=== PATIENT | female | born 2000 | race Caucasian/White ===

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

== ENCOUNTER 2020-09-12 13:09 | Emergency (ER) | payer MEDICAID, OTHER ==
[~2020-09-12] VITALS: Ht 170.2 cm; Wt 108.2 kg
[~2020-09-12 13:09] MED LIST: IBUP-1022 PO; OMEG100011 PO; VITA500046 PO
--- NOTE | 2020-09-12 14:25 | REP ---
INDICATION: trauma COMPARISON: None. TECHNIQUE: AP, lateral, bilateral oblique views. FINDINGS: No acute fracture or dislocation. Skeletal structures and joint spaces are intact and normal. Ankle mortise appears stable. No subcutaneous emphysema or radiodense foreign body. IMPRESSION: Normal right ankle radiograph series. <Electronically signed by Mazin Serra > 09/12/20 [id number]
[2020-09-12] MEDS ORDERED: DEPO150I12 IM (14:32)
--- NOTE | 2020-09-12 14:45 | REP ---
INDICATION: truama COMPARISON: None. TECHNIQUE: AP, lateral, bilateral oblique views right foot. FINDINGS: The osseous structures and joint spaces are intact and normal. There is no evidence for acute fracture or dislocation. Surrounding soft tissues are unremarkable. No subcutaneous emphysema or radiodense foreign body. IMPRESSION: . No acute fracture or dislocation. <Electronically signed by Mazin Serra > 09/12/20 [id number]
[2020-09-12 15:02] VITALS: BP 120/68
== END 2020-09-12 15:04 | disposition home or self-care (01) ==
LOC: M ED 13:09
DX: S93.401A Sprain of unspecified ligament of right ankle, initial encounter (principal); X50.1XXA Overexertion from prolonged static or awkward postures, initial encounter; Y92.098 Other place in other non-institutional residence as the place of occurrence of the external cause; Y93.89 Activity, other specified; Y99.8 Other external cause status

== ENCOUNTER 2020-10-16 19:25 | Emergency (ER) | payer OTHER ==
[~2020-10-16] VITALS: Ht 170.2 cm; Wt 109.5 kg
[~2020-10-16 19:25] MED LIST changes: +DEPO150I12 IM
[2020-10-16 20:01] LABS: BASO % 0.3 % (0.0-1.0); EOS # 0.1 10^3/uL (0.0-0.5); EOS % 1.8 % (0.0-3.0); HEMATOCRIT 40.6 % (36.0-47.0); HEMOGLOBIN 13.3 g/dl (12.0-15.5); LYMPH # 2.4 10^3/uL (1.5-5.0); LYMPH % 38.9 % (24.0-44.0); MEAN CORPUSCULAR HEMOGLOBIN 27.9 pg (27.0-33.0); MEAN CORPUSCULAR HGB CONC 32.8 g/dl (32.0-36.5); MEAN CORPUSCULAR VOLUME 85.3 fl (80.0-96.0); MONO # 0.4 10^3/uL (0.0-0.8); MONO % 6.9 % (2.0-8.0); NEUTROPHILS # 3.2 10^3/uL (1.5-8.5); NEUTROPHILS % 51.9 % (36.0-66.0); PLATELET COUNT, AUTOMATED 302 10^3/uL (150-450); RED BLOOD COUNT 4.76 10^6/uL (4.00-5.40); WHITE BLOOD COUNT 6.1 10^3/uL (4.0-10.0)
[2020-10-16 20:29] LABS: HCG, SERUM QUALITATIVE NEGATIVE (NEGATIVE)
[2020-10-16 20:30] LABS: ALBUMIN 4.2 GM/DL (3.2-5.2); ALT/SGPT 22 U/L (12-78); BILIRUBIN,DIRECT 0.1 MG/DL (0.0-0.2); BILIRUBIN,TOTAL 0.5 MG/DL (0.2-1.0); BLOOD UREA NITROGEN 9 MG/DL (7-18); CALCIUM LEVEL 9.9 MG/DL (8.5-10.1); CARBON DIOXIDE LEVEL 25 MEQ/L (21-32); CHLORIDE LEVEL 109 MEQ/L (98-107); CREATININE FOR GFR 0.77 MG/DL (0.55-1.30); GLUCOSE, FASTING 82 MG/DL (70-100); LIPASE 140 U/L (73-393); POTASSIUM SERUM 4.3 MEQ/L (3.5-5.1); SODIUM LEVEL 141 MEQ/L (136-145); TOTAL PROTEIN 8.2 GM/DL (6.4-8.2)
[2020-10-16] MEDS ORDERED: NS 1,000 ML IV SCH (20:35)
[2020-10-16] MEDS ORDERED: KETOROLAC 30 MG/ML 1ML VIAL IV ONE (20:35)
--- NOTE | 2020-10-16 20:56 | REPVR ---
PROCEDURE INFORMATION: Exam: CT Abdomen And Pelvis Without Contrast Exam date and time: 10/16/2020 8:39 PM Age: 20 years old Clinical indication: Abdominal pain; Localized; Lower; Additional info: Abd pain TECHNIQUE: Imaging protocol: Computed tomography of the abdomen and pelvis without contrast. Radiation optimization: All CT scans at this facility use at least one of these dose optimization techniques: automated exposure control; mA and/or kV adjustment per patient size (includes targeted exams where dose is matched to clinical indication); or iterative reconstruction. COMPARISON: No relevant prior studies available. FINDINGS: Pleural spaces: 3 mm and 6 mm noncalcified pleural based nodules left lower lobe, likely postinflammatory. Liver: Normal. No mass. Gallbladder and bile ducts: Normal. No calcified stones. No ductal dilation. Pancreas: Normal. No ductal dilation. Spleen: Normal. No splenomegaly. Adrenal glands: Normal. No mass. Kidneys and ureters: Normal. No hydronephrosis. Stomach and bowel: Focus of inflammation in the pericolonic fat anterior to the distal descending colon. No definite diverticuli demonstrated. Differential diagnosis includes occult diverticulitis or omental infarct and least likely epiploic appendagitis. Scant diverticulosis coli in the sigmoid colon. Appendix: No evidence of appendicitis. Intraperitoneal space: See "Stomach and bowel" finding. Vasculature: Unremarkable. No abdominal aortic aneurysm. Lymph nodes: Unremarkable. No enlarged lymph nodes. Urinary bladder: Unremarkable as visualized. Reproductive: Unremarkable as visualized. Bones/joints: [id number] central spinal stenosis L4-L5. Bulging annulus L5-S1. Soft tissues: Unremarkable. IMPRESSION: 1. Focus of inflammation in the pericolonic fat anterior to the distal descending colon. No definite diverticuli demonstrated. Differential diagnosis includes occult diverticulitis or omental infarct and least likely epiploic appendagitis. 2. Scant diverticulosis coli in the sigmoid colon. Electronically signed by: Rajendra Vidal On 10/16/2020 20:57:16 PM
[2020-10-16 23:00] VITALS: BP 160/94
== END 2020-10-16 23:47 | disposition home or self-care (01) ==
LOC: M ED 19:25
DX: M79.89 Other specified soft tissue disorders (principal); Z79.3 Long term (current) use of hormonal contraceptives
CPT/HCPCS: 74176; 80048; 80076; 81001; 83690; 84703; 85025; 96361; 96374; 99283; J1885

== ENCOUNTER → 2022-04-16 | Outpatient (REF) | payer OTHER | LOC: M LAB REF 20:07 | PROVIDERS: ATTEND Physician Assistant Medical | DX: B34.9 Viral infection, unspecified (principal) ==

== ENCOUNTER → 2022-08-06 | Outpatient (REF) | payer OTHER | LOC: M LAB REF 18:51 | PROVIDERS: ATTEND Physician Assistant Medical | DX: R07.0 Pain in throat (principal); R50.9 Fever, unspecified ==

== ENCOUNTER → 2022-08-07 | Outpatient (REF) | payer OTHER | LOC: M SFHCWAGY 13:06 | PROVIDERS: ATTEND Advanced Practice Midwife | DX: Z12.4 Encounter for screening for malignant neoplasm of cervix (principal) ==

== ENCOUNTER → 2023-10-30 | Outpatient (REF) | payer OTHER | LOC: M SFHCWAGY 10:14 | PROVIDERS: ATTEND Advanced Practice Midwife | DX: Z12.4 Encounter for screening for malignant neoplasm of cervix (principal) ==

== ENCOUNTER → 2023-11-23 | Outpatient (CLI) | payer OTHER | LOC: M RAD 14:53 | PROVIDERS: ATTEND Physician Assistant | DX: M79.672 Pain in left foot (principal) ==